=== PATIENT | female | born 1955 | race Caucasian/White ===

== ENCOUNTER 2021-05-11 10:09 | Outpatient (CLI) | payer BC, SELFPAY ==
--- NOTE | 2021-05-11 12:50 | WPDPFTINT ---
PFT Procedure Performed PFT Procedure Performed Spirometry with Pre/Post Bronchodilator Plethysmography (Lung Vol) Diffusing Cap (DLCO) Flow Vol Loop PFT Interpretation This is a pulmonary function test with pre and post-bronchodilator spirometry, plethysmography and diffusing capacity. The test was performed and results interpreted in accordance with the 2019 and 2005 ATS/ERS Task Force guidelines respectively using the Global Lung Function Initiative-2012 reference equations. Patient demonstrated good effort and cooperation. Reproducibility criteria were met. The quality of the pre bronchodilator spirometry maneuver was Grade A and post bronchodilator spirometry maneuver was Grade A. Findings: Spirometry: There is decreased maximal expiratory airflow at all lung volumes with concave expiratory flow tracing. Contour the inspiratory flow tracing is normal. The pre bronchodilator FVC is 2.12 L, 67% predicted. The pre bronchodilator FEV1 is 0.99 L, 40% predicted. The FEV1: FVC ratio is 47%. The post bronchodilator FVC is 2.53 L, representing a 19% increase. The post bronchodilator FEV1 is 1.17, representing a 18% increase. Plethysmography: The total lung capacity is 5.48 L, 105% predicted. Functional residual capacity is 3.87, 148% predicted. The residual volume is 3.01 L, 161% predicted. Diffusing capacity: The absolute diffusion capacity is 10.3, 44% predicted. The diffusing capacity corrected for alveolar volume is 3.03, 66% predicted. Impression: There is a severe obstructive abnormality with significant improvement after inhaling a single dose of albuterol. The increase in residual volume is consistent with air trapping from an obstructive abnormality. The absolute diffusing capacity is moderately decreased and remains mildly decreased when normalized when corrected for alveolar volume. There are no prior studies for comparison
== END 2021-05-11 10:10 | disposition home or self-care (01) ==
PROVIDERS: PCP Family Medicine; Visit Provider Nurse Practitioner Family
DX: R05 Cough (principal); R06.02 Shortness of breath; R94.2 Abnormal results of pulmonary function studies
CPT/HCPCS: 94060; 94726; 94729

== ENCOUNTER 2022-08-31 15:27 | Outpatient (CLI) | payer MEDICARE, BC, SELFPAY ==
--- NOTE | ~2022-08-31 | XR_ITS ---
EXAMINATION: XR lumbar spine 2-3V DATE: 08/31/2022 15:50 INDICATION: Bilateral lower limb pain, chronic low back pain TECHNIQUE: Anteroposterior and lateral views of the lumbar spine, and cone-down lateral view of the l umbosacral junction were obtained. COMPARISON: 11/16/2018 FINDINGS: There are stable changes of posterior fusion and interbody device placement at L5-S1. There are 10 mm of chronic anterolisthesis of L5 on S1. Vertebral body alignment is otherwise normal. Ther e is no fracture. The vertebral body heights are maintained. There is mild facet joint osteoarthritis in the mid lumbar spine. IMPRESSION: 1. Stable surgical changes at L5-S1 with chronic grade 2 anterolisthesis of L5 on S1. No acute findin gs. Reviewed, dictated and finalized at location B. R SLITTER IMPRESSION: 1. Stable surgical changes at L5-S1 with chronic grade 2 anterolisthesis of L5 on S1. No acute findings.
== END 2022-08-31 15:28 | disposition home or self-care (01) ==
PROVIDERS: PCP Family Medicine; Visit Provider Physician Assistant Medical
DX: M54.40 Lumbago with sciatica, unspecified side (principal)
CPT/HCPCS: 72100

== ENCOUNTER 2022-11-01 14:31 | Inpatient (IN) | payer MEDICARE, OTHER, SELFPAY ==
[2022-11-01] VITALS (7 sets, daily range): BP systolic 123–169; BP diastolic 80–103; PULSE 88–119; RESP 10–32; TEMP 36.8–37.1; O2SAT 96
--- NOTE | ~2022-11-01 | XR_ITS ---
EXAMINATION: XR chest 1V portable Exam Date/Time: 11/01/2022 15:30 CLARITY DEVELOPER HISTORY: SOB Comparison: 01/21/2004, x-ray lumbar spine 08/31/2022. RESULT: Lines, tubes, and devices: None. Lungs and pleura: Slightly increased reticular and reticulonodular opacities opacities. Curvilinear, rounded opacity projecting over the left inferior lung, stable since the prior lumbar spine radiogra phs, possible summation artifact versus diaphragmatic hernia. Cardiomediastinal silhouette: Stable. Other: No acute osseous or upper abdominal finding. IMPRESSION: Mild interstitial edema versus respiratory bronchiolitis. Possible small diaphragmatic hernia on the left, attention on the forthcoming CTPA for confirmation. Reviewed, dictated and finalized at location K. ITY DEVELOPER IMPRESSION: Mild interstitial edema versus respiratory bronchiolitis. Possible small diaphr agmatic hernia on the left, attention on the forthcoming CTPA for confirmation.
--- NOTE | ~2022-11-01 | CT_ITS ---
EXAMINATION: CTA chest PE protocol DATE: 11/01/2022 16:59 INDICATION: SOB, hx of PE TECHNIQUE: Computed tomography angiography (CTA) of the chest was performed with 100 mL Omnipaque-350 intravenous contrast timed to evaluate the pulmonary arteries. Coronal maximum intensity projection 3D-reconstructions were created by the technologist. The dose-length product (DLP) was 233.27 mGy-cm. Automated exposure control and iterative reconstruction technique were employed. COMPARISON: X-ray chest, same date. FINDINGS: Lung parenchyma and airways: Mild scattered central and peripheral reticular and tree-in-bud opacitie s. Pleura: Small fat-containing posterior left diaphragmatic hernia. Thoracic inlet, axillae and chest wall: Unremarkable. Thoracic aorta: Normal. Mediastinum: Normal. Heart and pericardium: Normal. Coronary artery calcifications: Mild. Upper abdomen: No significant finding. Bones: No acute osseous finding. Pulmonary arteries: Study quality: Adequate. No pulmonary emboli detected. IMPRESSION: No CT evidence of acute pulmonary embolus. Pulmonary opacities likely represent atypical infection. S mall fat-containing left-sided Bochdalek hernia. Reviewed, dictated and finalized at location K. N RESOURCES OFFICER IMPRESSION: No CT evidence of acute pulmonary embolus. Pulmonary opacities likely represent atypical infection. Small fat-containing left-sided Bochdalek hernia.
--- NOTE | ~2022-11-01 | XR_ITS ---
EXAMINATION: XR chest 1V INDICATION: Pneumonia and shortness of breath TECHNIQUE: AP view of the chest is obtained. COMPARISON: 11/01/2022 FINDINGS: There are persistent but improved airspace opacities of the bases. No pleural effusion or p neumothorax. The cardiomediastinal silhouette is normal. IMPRESSION: 1. Improving airspace opacities of the lung bases, consistent with resolving pneumonia. Reviewed, dictated and finalized at location L. CAL BILLING SUPERVISOR IMPRESSION: 1. Improving airspace opacities of the lung bases, consistent with resolving pn eumonia.
--- NOTE | ~2022-11-01 | CT_ITS ---
EXAMINATION: CT brain & sinus wo con DATE: 11/03/2022 13:14 INDICATION: Headache. TECHNIQUE: Computed tomography (CT) of the head and paranasal sinuses was performed without intraveno us contrast. The mA was adjusted according to patient size. Iterative reconstruction technique was em ployed. The dose-length product was 1059.30 mGy-cm. COMPARISON: Head CT 08/10/2006 FINDINGS: CT HEAD: There is no intracranial hemorrhage, acute infarction, or abnormal intracranial mass lesion. The ventricles are normal in size. There are likely changes of ocular lens replacement surgeries. Th e mastoid air cells are normal. CT SINUSES: There is mild mucosal thickening in the frontal, bilateral ethmoid, and sphenoid sinuses. The mastoid sinuses are clear. The ostiomeatal units are widely patent. There is leftward deviation of the nasal septum. IMPRESSION: 1. Normal brain. 2. Mild mucosal thickening in the paranasal sinuses. 3. Leftward deviation of the nasal septum. Reviewed, dictated and finalized at location A. NING TECHNOLOGIST
--- NOTE | 2022-11-01 14:38 | ECG_ITS ---
Measurements Intervals [place] Rate: 106 P: 79 UT: 150 QRS: 61 QRSD: 80 T: 62 QT: 330 QTc: 439 Interpretive Statements SINUS TACHYCARDIA CONSIDER ANTERIOR INFARCT, AGE INDETERMINATE BORDERLINE ST-T WAVE ABNORMALITY- HIGH LATERAL LEADS BASELINE ARTIFACT- I, II, AVR, AVL, AVF, V1-V4 ABNORMAL ECG NO PREVIOUS ECG AVAILABLE FOR COMPARISON Electronically Signed On 11-01-2022 14:53:03 CONSTRUCTION FRAMER by Seferino Humphries D.O.
--- NOTE | 2022-11-01 14:43 | ED.SOB ---
HPI - SOB/Dyspnea General Chief Complaint: Shortness of Breath/Dyspnea Stated Complaint: shortness of breath History of Present Illness HPI Narrative: Patient is a 67-year-old female with a history of COPD presenting with shortness of breath. Patient states that she was in her normal state of health until yesterday when she developed a productive cough. States around that time she also developed a headache. States that this morning she continued to feel very short of breath. She used her inhaler with mild improvement. States that she has also been nauseated with multiple episodes of emesis. She denies fever, chest pain, lightheadedness, abdominal pain, dysuria, leg swelling. She does report some diarrhea. Related Data Home Medications Medication Instructions Recorded Confirmed tizanidine 2 mg tablet 2 mg PO HS 11/01/22 11/01/22 Allergies Allergy/AdvReac Type Severity Reaction Status Date / Time Penicillins Allergy Unknown Unknown Verified 08/29/22 10:44 Sulfa (Sulfonamide Allergy Unknown Unknown Verified 08/29/22 10:44 Antibiotics) Review of Systems Review of Systems: All systems reviewed & are unremarkable except as noted in HPI and below PMFSH Past Medical History Medical History (Updated 11/03/22 @ 15:33 by Angeline Abad MD) Anxiety Arthritis Chronic obstructive pulmonary disease Insomnia Pulmonary embolism (2019) Tobacco abuse Surgical History Surgical History (Updated 11/02/22 @ 00:38 by Amanda Hoyt PA-C) History of bilateral cataract extraction Family History Family History Other Diabetes mellitus Social History Social History (Updated 11/02/22 @ 00:38 by Amanda Hoyt PA-C) Social History: Surrogate medical decision maker: Maykel Jade, spouse. Code status: Full code. Years smoked: 35 Smoking status: Former smoker Smoking end date: 10/16/22 Alcohol intake: never Substance use: never Lack of Transportation: No Lack of Food: Never True Current Housing: I Have Housing Concerned About Future Housing: No Difficulty Paying Gas/Electric Bills: No Difficulty Paying for Meds: No Currently Unemployed: No Education: Associate Degree Difficulty w/ Childcare or Family Care: No Spiritual care concerns: No Exam Narrative: GENERAL: Nontoxic, in mild respiratory distress HEAD: Normocephalic, atraumatic. EYES: PERRLA and EOMI. ENT: Nares clear, no rhinorrhea or epistaxis. Mucous membranes moist. NECK: Supple. CHEST: Very tight bilaterally with diffuse wheezing HEART: Tachycardic, regular rhythm. No murmur heard. Normal peripheral pulses. ABDOMEN: Soft, nontender, nondistended, normal active bowel sounds. EXTREMITIES: Normal range of motion. No edema. SKIN: Warm, dry, no rash. NEURO: No focal deficits. Alert and oriented x3. PSYCH: Normal mood and affect. Course Vital Signs Vital signs: Vital Signs Temperature 98.2 F 11/01/22 14:29 Pulse Rate 108 H 11/01/22 14:29 Respiratory Rate 32 H 11/01/22 14:29 Blood Pressure 169/103 H 11/01/22 14:29 Pulse Oximetry 96 11/01/22 14:29 Oxygen Delivery Room Air 11/01/22 14:29 Temperature 97.1 F L 11/03/22 13:55 Pulse Rate 90 11/03/22 14:47 Respiratory Rate 18 11/03/22 14:47 Blood Pressure 145/88 H 11/03/22 13:55 Pulse Oximetry 96 11/03/22 13:55 Oxygen Delivery Nasal Cannula 11/03/22 09:08 Oxygen Flow Rate 2 11/03/22 09:08 MDM - SOB/Dyspnea MDM Narrative Medical decision making narrative: Patient is a 67-year-old female presenting with shortness of breath. On arrival, patient is saturating 91 to 92% on room air. She is tachycardic and normotensive. She is extremely wheezy and tight on exam. Plan for hour-long breathing treatment, steroids. EKG per my interpretation shows sinus tachycardia, normal axis, normal intervals, no ST elevations or depressions. CXR with evidence of ed
[2022-11-01] MEDS: IPRATROPIUM BR 0.02% INH SOLN 0.5 MG/2.5 ML VIAL INHALATION ×2 (14:51→21:14)
[2022-11-01] MEDS: ALBUTEROL SULFATE NEB 2.5 MG/3 ML INH 10 MG INHALATION (14:51)
[2022-11-01 14:55] LABS: Basophils Absolute Auto 0.1 K/mm3 (0.0-0.1); Basophils Percent Auto 0.5 % (0.2-1.2); Eosinophils Absolute Auto 0.1 K/mm3 (0-0.3); Eosinophils Percent Auto 0.5 % (0-4.4); Hematocrit 41.9 % (37.0-47.0); Hemoglobin 14.2 g/dL (12.0-15.0); Immature Granulocyte Absolute 0.05 K/mm3 (0.00-0.031); Immature Granulocyte Percent A 0.5 % (0-0.5); Lymphocytes Absolute Auto 0.97 K/mm3 (0.9-3.2); Lymphocytes Percent Auto 9.9 % (18.3-44.2); Mean Corpuscular HGB Conc 33.9 g/dl (32-36); Mean Corpuscular Hemoglobin 30.3 pg (26-34); Mean Corpuscular Volume 89.3 fl (80-100); Mean Platelet Volume 9.2 fl (7.4-10.4); Monocytes Absolute Auto 0.5 K/mm3 (0.1-0.6); Monocytes Percent Auto 5.1 % (2.6-8.5); Neutrophils Absolute Auto 8.2 K/mm3 (1.3-6.7); Neutrophils Percent Auto 83.5 % (45.5-73.1); Platelet Count Result 321 k/mm3 (150-375); Red Blood Count 4.69 M/mm3 (4.2-5.4); White Blood Count 9.8 K/mm3 (4.5-10.0)
[2022-11-01 15:06] LABS: Alanine Aminotransferase 17 U/L (6-35); Albumin Level 4.4 g/dL (3.5-5.1); Alkaline Phosphatase 129 U/L (38-126); Anion Gap 7 mmol/L (8-16); Aspartate Amino Transferase 26 U/L (14-36); Bilirubin,Total 0.3 mg/dL (0.2-1.3); Blood Urea Nitrogen 13 mg/dL (7-17); Calcium 8.6 mg/dL (8.4-10.2); Carbon Dioxide 23 mmol/L (22-30); Chloride 107 mmol/L (98-107); Estimated CRCL calculation 79 ml/min; Estimated Glomerular Filt Rate > 60; Glucose 97 mg/dL (65-110); Lipase 52 U/L (23-300); Potassium 4.1 mmol/L (3.4-5.0); Sodium 137 mmol/L (137-145)
[2022-11-01] MEDS: ONDANSETRON INJ 4 MG/2 ML VIAL IV PUSH (15:08)
[2022-11-01] MEDS: SODIUM CHLORIDE 0.9% IV 1,000 ML 999 ML IV CONT (15:08)
[2022-11-01] MEDS: methylPREDNISolone SOD SUCC 125 MG VIAL IV PUSH (15:08)
[2022-11-01] MEDS: KETOROLAC 15 MG/ML VIAL (*BKC) IV PUSH (15:08)
[2022-11-01 15:31] LABS: Influenza A QL RT-PCR Negative (Negative); Influenza B QL RT-PCR Negative (Negative); RSV RNA, RT-PCR Negative (Negative); SARS-CoV-2 RNA PCR Negative
[2022-11-01] MEDS: ACETAMINOPHEN 500 MG TABLET 1000 MG PO (17:10)
[2022-11-01 17:17] LABS: Add Urine Microscopic? YES; Appearance Urine Clear (Clear); Bilirubin Urine Negative (Negative); Blood Urine Negative (Negative); Color Urine Yellow (Yellow); Glucose Urine UA Negative (Negative); Ketones Urine 4+ mg/dL (Negative); Leukocyte Esterase Ur Negative LEU/UL (Negative); Nitrate Urine Negative (Negative); Protein Urine Trace mg/dL (Negative); Specific Grav Ur >= 1.030 (1.001-1.035); Urobilinogen Urine 0.2 mg/dL (<2.0); pH Urine 5.5 (5.0-9.0)
[2022-11-01 17:21] LABS: Mucus Urine Rare /lpf; RBC Urine 0-2 /hpf (0-2); Squamous Epithelial Cell Urine Rare /hpf (Few); WBC Urine 0-3 /hpf
[2022-11-01] MEDS: ALBUTEROL SULFATE NEB 2.5 MG/3 ML INH 5 MG INHALATION (21:14)
--- NOTE | 2022-11-01 23:55 | PM.IMHP ---
H&P: HPI History of Present Illness Date/Time: 11/01/22 23:55 Chief Complaint: Shortness of breath. Narrative: This is a 67-year-old female with COPD and history of pulmonary embolism who presented to the emergency department from home for evaluation of shortness of breath. She has not been feeling well for several days with symptoms to include frontal headache, sinus congestion, chills, decreased appetite, nausea with several episodes of emesis but now dry heaving, and loose stools. She has been taking Tylenol and Mucinex at home without much help and today she felt increasingly stuffy and short of breath and came in for evaluation. She he denies sick contacts, documented fever, sore throat, chest pain, pleuritic pain, palpitations, calf pain, edema, and dysuria. No known sick contacts. She was afebrile on arrival with stable vital signs. Labs were pretty unremarkable. Urine was concentrated with 4+ ketones. She was negative for influenza, RSV, and COVID. Chest x-ray showed mild interstitial edema versus respiratory bronchiolitisly on but did note for pulmonary opacities likely representing atypical infection. She was given a nebulizer and Solu-Medrol in the ED and she is being admitted in this setting for further treatment of COPD exacerbation. Review of Systems Review of Systems: 12 systems were reviewed and are negative except for as per HPI. FORMERLY [facility], [facility] Past Medical History Medical History (Updated 11/02/22 @ 01:08 by Amanda Hoyt PA-C) Anxiety Arthritis Chronic obstructive pulmonary disease Insomnia Pulmonary embolism (2019) Tobacco abuse Surgical History Surgical History (Updated 11/02/22 @ 00:38 by Amanda Hoyt PA-C) History of bilateral cataract extraction Family History Family History Other Diabetes mellitus Social History Social History (Updated 11/02/22 @ 00:38 by Amanda Hoyt PA-C) Social History: Surrogate medical decision maker: Maykel Jade, spouse. Code status: Full code. Years smoked: 35 Smoking status: Former smoker Smoking end date: 10/16/22 Alcohol intake: never Substance use: never Lack of Transportation: No Lack of Food: Never True Current Housing: I Have Housing Concerned About Future Housing: No Difficulty Paying Gas/Electric Bills: No Difficulty Paying for Meds: No Currently Unemployed: No Education: Associate Degree Difficulty w/ Childcare or Family Care: No Spiritual care concerns: No Meds Home Medications and Allergies Home Medications Medication Instructions Recorded Confirmed Type zaleplon 5 mg capsule 5 mg PO DAILY #30 caps 08/15/22 11/01/22 Rx alendronate 70 mg tablet 70 mg PO WEEKLY #90 tabs 08/29/22 11/01/22 Rx budesonide-formoterol HFA 160 See Rx Instructions .Route 08/29/22 11/01/22 Rx mcg-4.5 mcg/actuation aerosol .COMPLEX ##10.2 inhaler meloxicam 15 mg tablet 15 mg PO DAILY #30 tabs 08/29/22 11/01/22 Rx valacyclovir 1 gram tablet 1,000 mg PO Q12H #4 tabs 08/29/22 11/01/22 Rx (Valtrex) tizanidine 2 mg tablet 2 mg PO HS 11/01/22 11/01/22 History Allergies Allergy/AdvReac Type Severity Reaction Status Date / Time Penicillins Allergy Unknown Unknown Verified 08/29/22 10:44 Sulfa (Sulfonamide Allergy Unknown Unknown Verified 08/29/22 10:44 Antibiotics) Vital Signs Vital Signs - 24 hr 11/01/22 14:29 11/01/22 14:52 11/01/22 15:43 Temperature 98.2 F Pulse Rate 108 H 105 H 119 H Respiratory Rate 32 H 10 L 22 H Blood Pressure 169/103 H Pulse Oximetry 96 Oxygen Delivery Room Air Oxygen Flow Rate 11/01/22 16:09 11/01/22 19:03 11/01/22 22:44 Temperature Pulse Rate 88 Respiratory Rate 16 Blood Pressure Pulse Oximetry 96 Oxygen Delivery Room Air Nasal Cannula Oxygen Flow Rate 3 11/01/22 22:54 Temperature 98.7 F Pulse Rate 98 Respiratory Rate 18 Blood Pressure 123/80 Pulse Oximetry 96 Oxyg
[2022-11-02] VITALS (18 sets, daily range): BP systolic 133–144; BP diastolic 71–88; PULSE 77–108; RESP 18–91; TEMP 35.9–36.8; O2SAT 18–96
[2022-11-02] MEDS: guaiFENesin 600 MG/DEXTROMETHORPHAN 30 MG SR TAB 12 HR 1 TAB PO ×3 (01:28→21:28)
[2022-11-02] MEDS: ZOLPIDEM TARTRATE (*CRX) 5 MG TABLET PO ×2 (01:28→21:28)
[2022-11-02] MEDS: TIZANIDINE HCL 2 MG TABLET PO ×2 (01:28→21:28)
[2022-11-02] MEDS: methylPREDNISolone SOD SUCC 40 MG VIAL IV PUSH ×3 (01:29→16:56)
[2022-11-02] MEDS: KETOROLAC 15 MG/ML VIAL (*BKC) IV PUSH (01:29)
[2022-11-02] MEDS: DEXTROSE 5%/0.9% SOD CHL 1,000 ML 100 ML IV CONT (01:30)
[2022-11-02] MEDS: IPRATROPIUM BR 0.02% INH SOLN 0.5 MG/2.5 ML VIAL INHALATION ×4 (03:15→21:43)
[2022-11-02] MEDS: ALBUTEROL SULFATE NEB 2.5 MG/3 ML INH INHALATION ×4 (03:15→21:42)
[2022-11-02 05:38] LABS: Hematocrit 38.3 % (37.0-47.0); Hemoglobin 12.8 g/dL (12.0-15.0); Mean Corpuscular HGB Conc 33.4 g/dl (32-36); Mean Corpuscular Hemoglobin 30.2 pg (26-34); Mean Corpuscular Volume 90.3 fl (80-100); Platelet Count Result 305 k/mm3 (150-375); Red Blood Count 4.24 M/mm3 (4.2-5.4); Red Cell Distribution Width 12.7 % (11.5-14.5); White Blood Count 9.3 K/mm3 (4.5-10.0)
[2022-11-02 05:53] LABS: Chloride 105 mmol/L (98-107)
[2022-11-02 05:58] LABS: Anion Gap 5 mmol/L (8-16); Blood Urea Nitrogen 11 mg/dL (7-17); Calcium 7.9 mg/dL (8.4-10.2); Carbon Dioxide 24 mmol/L (22-30); Estimated CRCL calculation 79 ml/min; Estimated Glomerular Filt Rate > 60; Glucose 162 mg/dL (65-110); Magnesium 1.9 mg/dL (1.6-2.3); Potassium 3.7 mmol/L (3.4-5.0); Sodium 134 mmol/L (137-145)
[2022-11-02 06:07] LABS: Procalcitonin 0.1 ng/mL
[2022-11-02] MEDS: ACETAMINOPHEN 325 MG TABLET 650 MG PO ×2 (08:21→22:00)
[2022-11-02] MEDS: FLUTICASONE PROPIONATE 0.05% NA SPR 16 GM BTL (*BKC) 1 SPRAY NASAL ×2 (08:22→21:27)
[2022-11-02] MEDS: valACYclovir HCL 500 MG TABLET 1000 MG PO ×2 (08:22→21:28)
[2022-11-02] MEDS: MELOXICAM 7.5 MG TABLET 15 MG PO (08:22)
[2022-11-02] MEDS: ENOXAPARIN 40 MG/0.4 ML SYRINGE SUB-Q (08:22)
[2022-11-02] MEDS: FLUTICASONE/SALMETEROL 115-21 MCG INHALER 1 PUFF 2 PUFF INHALATION ×2 (08:44→21:43)
[2022-11-02] MEDS: HYDROcodone/acetaminophen (*CRX) 5-325 MG TABLET 1 TAB PO (11:00)
--- NOTE | 2022-11-02 11:15 | PM.IMPN ---
Progress Note: A&P Assessment and Plan (1) COPD exacerbation: Code(s): J44.1 - Chronic obstructive pulmonary disease with (acute) exacerbation Status: Acute Assessment and Plan: Likely precipitated by viral infection. Continue scheduled bronchodilators and Solu-Medrol. (2) Dehydration: Code(s): E86.0 - Dehydration Status: Acute Assessment and Plan: Secondary to poor oral intake and vomiting. Hydrate overnight. (3) Pneumonia: Code(s): J18.9 - Pneumonia, unspecified organism Status: Acute Assessment and Plan: Likely viral pneumonia however possible atypical infection. She has been started on azithromycin. Attempt sputum for culture. Plan Patient quit smoking on 2021. Seems to be doing well in that regard. Subjective Date/time seen: 11/02/22 11:15 Breathing better. No new complaints Exam Narrative: General: Mildly ill-appearing female sitting up in bed. Weight: 65 kilograms. BMI: 27.1. HEENT: Normocephalic, atraumatic. PERRL, EOMI. Sclera anicteric. Dry mucous membranes. No tenderness to palpation over the sinuses. Neck: Supple. No JVD or lymphadenopathy. Respiratory: Mildly tachypneic with speaking in full sentences. Lung sounds are diminished throughout with coarse lung sounds at the bases and expiratory wheezing. Cardiovascular: Regular rate and rhythm with S1-S2. Gastrointestinal: Abdomen is soft, nontender, and nondistended with positive bowel sounds. Skin: Warm and dry. No rash or lesions on limited exam. Extremities: No cyanosis, clubbing, or edema. Radial and pedal pulses intact. Negative Jacki sign bilaterally. Neurological: Alert. Cranial nerves 2-12 are grossly intact. No gross focal deficits to casual conversation. Psychiatric: Pleasant and cooperative with normal mood and affect. Judgment and insight intact. Objective Data Vital Signs Vital Signs: Vital Signs - 24 hr 11/01/22 14:29 11/01/22 14:52 11/01/22 15:43 Temperature 98.2 F Pulse Rate 108 H 105 H 119 H Respiratory Rate 32 H 10 L 22 H Blood Pressure 169/103 H Pulse Oximetry 96 Oxygen Delivery Room Air Oxygen Flow Rate 11/01/22 16:09 11/01/22 19:03 11/01/22 22:44 Temperature Pulse Rate 88 Respiratory Rate 16 Blood Pressure Pulse Oximetry 96 Oxygen Delivery Room Air Nasal Cannula Oxygen Flow Rate 3 01/10/23 22:54 11/01/22 20:00 11/02/22 01:15 Temperature 98.7 F Pulse Rate 98 Respiratory Rate 18 Blood Pressure 123/80 139/87 Pulse Oximetry 96 95 Oxygen Delivery Nasal Cannula Oxygen Flow Rate 3 11/02/22 03:15 11/02/22 03:43 11/01/22 20:00 Temperature Pulse Rate 77 96 95 Respiratory Rate 18 77 H Blood Pressure Pulse Oximetry 18 L Oxygen Delivery Nasal Cannula Oxygen Flow Rate 2 11/02/22 00:00 11/02/22 04:00 11/02/22 06:00 Temperature 97.6 F Pulse Rate 94 98 94 Respiratory Rate 18 Blood Pressure 134/88 Pulse Oximetry 95 Oxygen Delivery Oxygen Flow Rate 11/02/22 08:45 11/02/22 08:45 11/02/22 08:55 Temperature Pulse Rate 94 91 98 Respiratory Rate 91 H 24 H 24 H Blood Pressure Pulse Oximetry 24 L Oxygen Delivery Nasal Cannula Oxygen Flow Rate 2 11/02/22 08:00 11/02/22 08:00 Temperature Pulse Rate 108 H Respiratory Rate Blood Pressure Pulse Oximetry 96 Oxygen Delivery Nasal Cannula Oxygen Flow Rate 2 Intake/Output Intake/Output: Intake & Output 10/30/22 10/31/22 11/01/22 11/02/22 23:59 23:59 23:59 23:59 Intake Total 1120 850 Output Total 700 Balance 1120 150 Meds/Results Medications: Active Medications Generic Name Dose Route Start Last Admin Trade Name Freq PRN Reason Stop Dose Admin Acetaminophen 650 mg 11/02/22 01:09 11/02/22 08:21 Acetaminophen 325 Mg Tablet PO 650 mg Q6H PRN Administration Mild Pain (1-3) or Fever Hydrocodone Bitart/Acetaminophen 1 tab 11/02/22 10:39
[2022-11-02] MEDS: ONDANSETRON INJ 4 MG/2 ML VIAL IV PUSH (16:56)
[2022-11-03] VITALS (15 sets, daily range): BP systolic 129–147; BP diastolic 86–94; PULSE 90–104; RESP 12–20; TEMP 36.2–37; O2SAT 93–96
[2022-11-03] MEDS: methylPREDNISolone SOD SUCC 40 MG VIAL IV PUSH ×3 (02:04→17:08)
[2022-11-03] MEDS: ALBUTEROL SULFATE NEB 2.5 MG/3 ML INH INHALATION ×4 (03:28→20:30)
[2022-11-03] MEDS: IPRATROPIUM BR 0.02% INH SOLN 0.5 MG/2.5 ML VIAL INHALATION ×4 (03:29→20:31)
[2022-11-03] MEDS: valACYclovir HCL 500 MG TABLET 1000 MG PO ×2 (08:04→21:54)
[2022-11-03] MEDS: ENOXAPARIN 40 MG/0.4 ML SYRINGE SUB-Q (08:04)
[2022-11-03] MEDS: MELOXICAM 7.5 MG TABLET 15 MG PO (08:04)
[2022-11-03] MEDS: guaiFENesin 600 MG/DEXTROMETHORPHAN 30 MG SR TAB 12 HR 1 TAB PO ×2 (08:04→21:54)
[2022-11-03] MEDS: FLUTICASONE PROPIONATE 0.05% NA SPR 16 GM BTL (*BKC) 1 SPRAY NASAL ×2 (08:05→21:54)
[2022-11-03] MEDS: FLUTICASONE/SALMETEROL 115-21 MCG INHALER 1 PUFF 2 PUFF INHALATION ×2 (09:02→20:31)
--- NOTE | 2022-11-03 12:47 | PM.IMPN ---
Progress Note: A&P Assessment and Plan (1) COPD exacerbation: Code(s): J44.1 - Chronic obstructive pulmonary disease with (acute) exacerbation Status: Acute Assessment and Plan: Likely precipitated by viral infection. Continue scheduled bronchodilators and Solu-Medrol. Continue antibiotics (2) Dehydration: Code(s): E86.0 - Dehydration Status: Acute Assessment and Plan: Resolved (3) Pneumonia: Code(s): J18.9 - Pneumonia, unspecified organism Status: Acute Assessment and Plan: Likely viral pneumonia however possible atypical infection. She has been started on azithromycin. Subjective Date/time seen: 11/03/22 12:47 No new complaints. Reports she is feeling better. Exam Narrative: General: Mildly ill-appearing female sitting up in bed. Weight: 65 kilograms. BMI: 27.1. HEENT: Normocephalic, atraumatic. PERRL, EOMI. Sclera anicteric. Dry mucous membranes. No tenderness to palpation over the sinuses. Neck: Supple. No JVD or lymphadenopathy. Respiratory: Mildly tachypneic with speaking in full sentences. Lung sounds are diminished throughout with coarse lung sounds at the bases and expiratory wheezing. Cardiovascular: Regular rate and rhythm with S1-S2. Gastrointestinal: Abdomen is soft, nontender, and nondistended with positive bowel sounds. Skin: Warm and dry. No rash or lesions on limited exam. Extremities: No cyanosis, clubbing, or edema. Radial and pedal pulses intact. Negative Jacki sign bilaterally. Neurological: Alert. Cranial nerves 2-12 are grossly intact. No gross focal deficits to casual conversation. Psychiatric: Pleasant and cooperative with normal mood and affect. Judgment and insight intact. Objective Data Vital Signs Vital Signs: Vital Signs - 24 hr 11/02/22 14:00 11/02/22 14:32 11/02/22 14:44 Temperature 98.2 F Pulse Rate 91 86 93 Respiratory Rate 18 24 H 24 H Blood Pressure 133/83 Pulse Oximetry 95 Oxygen Delivery Oxygen Flow Rate 11/02/22 16:00 11/02/22 21:45 11/02/22 21:47 Temperature Pulse Rate 102 H 91 Respiratory Rate 20 Blood Pressure Pulse Oximetry 95 Oxygen Delivery Nasal Cannula Oxygen Flow Rate 2 11/02/22 21:42 11/02/22 20:00 11/03/22 03:30 Temperature 96.7 F L Pulse Rate 93 93 Respiratory Rate 18 18 Blood Pressure 144/71 H Pulse Oximetry 95 96 Oxygen Delivery Nasal Cannula Oxygen Flow Rate 2 11/02/22 20:00 11/03/22 00:00 11/03/22 04:00 Temperature Pulse Rate 96 104 H 93 Respiratory Rate Blood Pressure Pulse Oximetry Oxygen Delivery Oxygen Flow Rate 11/03/22 06:00 11/03/22 09:08 11/03/22 09:09 Temperature 98.6 F Pulse Rate 99 94 92 Respiratory Rate 18 Blood Pressure 129/86 Pulse Oximetry 96 93 Oxygen Delivery Nasal Cannula Oxygen Flow Rate 2 11/03/22 08:00 11/03/22 08:00 11/03/22 12:00 Temperature Pulse Rate 90 103 H Respiratory Rate Blood Pressure Pulse Oximetry 93 Oxygen Delivery Nasal Cannula Oxygen Flow Rate 2 Intake/Output Intake/Output: Intake & Output 10/31/22 11/01/22 11/02/22 11/03/22 23:59 23:59 23:59 23:59 Intake Total 6845 007 1100 Output Total 700 600 Balance 1120 270 850 Meds/Results Medications: Active Medications Generic Name Dose Route Start Last Admin Trade Name Freq PRN Reason Stop Dose Admin Acetaminophen 650 mg 11/02/22 01:09 11/02/22 22:00 Acetaminophen 325 Mg Tablet PO 650 mg Q6H PRN Administration Mild Pain (1-3) or Fever Hydrocodone Bitart/Acetaminophen 1 tab 11/02/22 10:39 11/02/22 11:00 Hydrocodone/Acetaminophen (*Crx) 5-325 Mg Tablet PO 1 tab Q8H PRN Administration Pain Rated 4-6 Albuterol 2.5 mg 11/02/22 02:00 11/03/22 09:02 Albuterol Sulfate Neb 2.5 Mg/3 Ml Inh INHALATION 2.5 mg Q6HRT ELGIN Administration Enoxaparin Sodium 40 mg 11/02/22 09:00 11/03/22 08:04 Enoxaparin 40 Mg/0.
[2022-11-03] MEDS: ACETAMINOPHEN 325 MG TABLET 650 MG PO (18:36)
[2022-11-03] MEDS: TIZANIDINE HCL 2 MG TABLET PO (21:54)
[2022-11-03] MEDS: ZOLPIDEM TARTRATE (*CRX) 5 MG TABLET PO (21:54)
[2022-11-04] VITALS (19 sets, daily range): BP systolic 151–168; BP diastolic 91–110; PULSE 88–111; RESP 16–22; TEMP 36.6–37; O2SAT 87–100
[2022-11-04] MEDS: ALBUTEROL SULFATE NEB 2.5 MG/3 ML INH INHALATION ×3 (01:25→13:27)
[2022-11-04] MEDS: IPRATROPIUM BR 0.02% INH SOLN 0.5 MG/2.5 ML VIAL INHALATION ×3 (01:25→13:27)
[2022-11-04] MEDS: methylPREDNISolone SOD SUCC 40 MG VIAL IV PUSH ×2 (02:49→09:16)
[2022-11-04 04:58] LABS: Basophils Percent Auto 0.2 % (0.2-1.2); Hematocrit 38.6 % (37.0-47.0); Hemoglobin 13.1 g/dL (12.0-15.0); Immature Granulocyte Absolute 0.08 K/mm3 (0.00-0.031); Lymphocytes Absolute Auto 0.85 K/mm3 (0.9-3.2); Lymphocytes Percent Auto 10.5 % (18.3-44.2); Mean Corpuscular HGB Conc 33.9 g/dl (32-36); Mean Corpuscular Hemoglobin 30.3 pg (26-34); Mean Corpuscular Volume 89.4 fl (80-100); Mean Platelet Volume 8.9 fl (7.4-10.4); Monocytes Absolute Auto 0.3 K/mm3 (0.1-0.6); Monocytes Percent Auto 3.1 % (2.6-8.5); Neutrophils Absolute Auto 6.9 K/mm3 (1.3-6.7); Neutrophils Percent Auto 85.2 % (45.5-73.1); Platelet Count Result 331 k/mm3 (150-375); Red Blood Count 4.32 M/mm3 (4.2-5.4); Red Cell Distribution Width 12.9 % (11.5-14.5); White Blood Count 8.1 K/mm3 (4.5-10.0)
[2022-11-04 05:09] LABS: Anion Gap 4 mmol/L (8-16); Blood Urea Nitrogen 20 mg/dL (7-17); Calcium 8.4 mg/dL (8.4-10.2); Carbon Dioxide 27 mmol/L (22-30); Chloride 106 mmol/L (98-107); Estimated CRCL calculation 81 ml/min; Estimated Glomerular Filt Rate > 60; Glucose 150 mg/dL (65-110); Potassium 3.6 mmol/L (3.4-5.0); Sodium 137 mmol/L (137-145)
[2022-11-04] MEDS: valACYclovir HCL 500 MG TABLET 1000 MG PO (09:15)
[2022-11-04] MEDS: FLUTICASONE PROPIONATE 0.05% NA SPR 16 GM BTL (*BKC) 1 SPRAY NASAL (09:15)
[2022-11-04] MEDS: guaiFENesin 600 MG/DEXTROMETHORPHAN 30 MG SR TAB 12 HR 1 TAB PO (09:15)
[2022-11-04] MEDS: MELOXICAM 7.5 MG TABLET 15 MG PO (09:16)
[2022-11-04] MEDS: ENOXAPARIN 40 MG/0.4 ML SYRINGE SUB-Q (09:16)
[2022-11-04] MEDS: HYDROcodone/acetaminophen (*CRX) 5-325 MG TABLET 1 TAB PO (09:33)
[2022-11-04] MEDS: FLUTICASONE/SALMETEROL 115-21 MCG INHALER 1 PUFF 2 PUFF INHALATION (10:33)
--- NOTE | 2022-11-04 11:52 | PM.DS ---
DS: Admitting Diagnosis Discharge Date November 04, 2022 Admitting Diagnosis COPD, pneumonia DS: Discharge Diagnosis Discharge Diagnosis (1) COPD exacerbation: Code(s): J44.1 - Chronic obstructive pulmonary disease with (acute) exacerbation Status: Acute Assessment and Plan: Likely precipitated by viral infection. Continue scheduled bronchodilators and Solu-Medrol. Continue antibiotics (2) Dehydration: Code(s): E86.0 - Dehydration Status: Acute Assessment and Plan: Resolved (3) Pneumonia: Code(s): J18.9 - Pneumonia, unspecified organism Status: Acute Assessment and Plan: Likely viral pneumonia however possible atypical infection. She has been started on azithromycin. DS: Summary Hospital Course Hospital Course: 67-year-old female history of COPD came in with exacerbation. She was started on IV antibiotics and steroids and did well. Will have evaluated for home oxygen on discharge. Otherwise she can go home to continue course of azithromycin and prednisone. Time Spent with Patient Time attestation: Total time spent providing and/or coordinating discharge services: Exam Narrative: General: Mildly ill-appearing female sitting up in bed. Weight: 65 kilograms. BMI: 27.1. HEENT: Normocephalic, atraumatic. PERRL, EOMI. Sclera anicteric. Dry mucous membranes. No tenderness to palpation over the sinuses. Neck: Supple. No JVD or lymphadenopathy. Respiratory: Mildly tachypneic with speaking in full sentences. Lung sounds are diminished throughout with coarse lung sounds at the bases and expiratory wheezing. Cardiovascular: Regular rate and rhythm with S1-S2. Gastrointestinal: Abdomen is soft, nontender, and nondistended with positive bowel sounds. Skin: Warm and dry. No rash or lesions on limited exam. Extremities: No cyanosis, clubbing, or edema. Radial and pedal pulses intact. Negative Jacki sign bilaterally. Neurological: Alert. Cranial nerves 2-12 are grossly intact. No gross focal deficits to casual conversation. Psychiatric: Pleasant and cooperative with normal mood and affect. Judgment and insight intact. DS: Data Data Completed and Pending Labs on day of discharge: Labs from last 24 hours 11/04/22 11/04/22 04:50 04:50 WBC 8.1 RBC 4.32 Hgb 13.1 Hct 38.6 MCV 89.4 MCH 30.3 MCHC 33.9 RDW 12.9 Plt Count 331 MPV 8.9 Immature Gran % (Auto) 1.0 H Neut % (Auto) 85.2 H Lymph % (Auto) 10.5 L Page % (Auto) 3.1 Eos % (Auto) 0.0 Baso % (Auto) 0.2 Lymph # (Auto) 0.85 L Page # (Auto) 0.3 Eos # (Auto) 0.0 Baso # (Auto) 0.0 Abs Immat Gran (auto) 0.08 H Absolute Neuts (auto) 6.9 H Absolute Nucleated RBC 0.0 Nucleated RBC % 0.0 Sodium 137 Potassium 3.6 Chloride 106 Carbon Dioxide 27 Anion Gap 4 L BUN 20 H Creatinine 0.50 L Estim Creat Clear Calc 81 Estimated GFR > 60 Glucose 150 H Calcium 8.4 Discharge Plan Discharge Attending physician on discharge: Burt Ledesma Discharging Clinician: Burt Ledesma Patient Disposition: Home, Self-Care Activity: no preference Diet: as tolerated Patient Instructions: Antibiotic Form Stand Alone Forms: General Discharge Information Follow-up/Referrals: Didier Colindres MD [Primary Care Provider] - Discharge Medications: New azithromycin 500 mg tablet 500 mg PO DAILY 5 Days Qty: 5 0RF prednisone 50 mg tablet 50 mg PO DAILY Qty: 4 0RF Continued budesonide-formoterol 160-4.5 mcg/actuation HFA aerosol inhaler See Rx Instructions .ROUTE .COMPLEX Qty: 10.2 3RF Dose Instruction: INHALE 2 PUFFS EVERY 12 HOURS Rx Instructions: INHALE 2 PUFFS EVERY 12 HOURS alendronate 70 mg tablet 70 mg PO WEEKLY Qty: 90 0RF meloxicam 15 mg tablet 15 mg PO DAILY Qty: 30 3RF tizanidine 2 mg tablet 2 mg PO HS Rx Instructions: TAKE 1 TABLET ONCE D
[2022-11-04] MEDS: ONDANSETRON INJ 4 MG/2 ML VIAL IV PUSH (12:23)
--- NOTE | 2022-11-04 13:31 | HOMEO2EVAL ---
Evaluation was performed at [facility] Home Oxygen Evaluation RC: Home Oxygen (O2) Evaluation Start: 11/04/22 11:50 Freq: ONCE Status: Active Protocol: RPE Activity Type Activity Date Activity User E-sign Co-sign Detail Recorded Client Recorded Date Recorded By Document 11/04/22 13:00 [email or web address] [email or web address] 11/04/22 13:31 DJO Document 11/04/22 13:05 [email or web address] [email or web address] 11/04/22 13:31 DJO Document 11/04/22 13:10 [email or web address] [email or web address] 11/04/22 13:31 DJO Document 11/04/22 13:15 [email or web address] [email or web address] 11/04/22 13:31 DJO Document 11/04/22 13:30 [email or web address] [email or web address] 11/04/22 13:31 DJO 11/04/22 11/04/22 11/04/22 13:00 13:05 13:10 Home O2 Evaluation [Oxygen] -Test Phase Resting Exercise Exercise -Oxygen Delivery Room Air Room Air Nasal Cannula -Oxygen Flow Rate (L/min) 1 [Pulse Oximetry] -Pulse Oximetry (90-100 %) 91 87 L 88 L [Pulse Rate] -Pulse Rate (60-100 beats/min) 93 105 H 105 H [Evaluation] -Activity Tolerance [Charges] -Treatment Charges O2 Evaluation - Inpatient 11/04/22 11/04/22 13:15 13:30 Home O2 Evaluation [Oxygen] -Test Phase Exercise Resting -Oxygen Delivery Nasal Cannula Room Air -Oxygen Flow Rate (L/min) 2 [Pulse Oximetry] -Pulse Oximetry (90-100 %) 91 91 [Pulse Rate] -Pulse Rate (60-100 beats/min) 109 H 95 [Evaluation] -Activity Tolerance Good [Charges] -Treatment Charges
--- NOTE | 2022-11-06 11:44 | PC.NURSE ---
Pt spouse called today, asking when he should schedule an appointment with primary care physician. Instructed him to call Dr Jara's office tomorrow and explain that she has been recently hospitalized and needs a follow-up appointment, they will make the appointment according to their schedule. He inquired as to what medications should the patient take. He was instructed to follow the discharge orders, azithromycin until the prescription is complete, prednisone until the prescription is complete and the inhaler until instructed otherwise by Dr Jara. He states the patient is breathing better and ambulating without difficulty or shortness of breath. He states her condition is improved and the medications seem to be working.
== END 2022-11-04 14:45 | disposition home or self-care (01) | DRG 190 ==
LOC: ANHED 14:52 → ANH2MED 17:11
PROVIDERS: Physician Assistant; Admitting Provider Family Medicine; Emergency Provider Emergency Medicine; PCP Family Medicine; Visit Provider Chiropractor
DX: J44.1 Chronic obstructive pulmonary disease with (acute) exacerbation (principal); J12.9 Viral pneumonia, unspecified; J44.0 Chronic obstructive pulmonary disease with (acute) lower respiratory infection; E86.0 Dehydration; Z20.822 Contact with and (suspected) exposure to COVID-19; F41.9 Anxiety disorder, unspecified; M19.90 Unspecified osteoarthritis, unspecified site; Z86.711 Personal history of pulmonary embolism; Z87.891 Personal history of nicotine dependence; Z98.42 Cataract extraction status, left eye; Z98.41 Cataract extraction status, right eye
CPT/HCPCS: 36415; 70450; 70486; 71045; 71275; 80048; 80053; 81001; 83690; 83735; 84145; 85025; 85027; 87637; 93005; 94618; 94640; 96361; 96365; 96372; 96375; 96376; 99285; A9270; G0378; J0456; J1650; J1885; J2405; J2920; J2930; J7030; J7042; Q9967

== ENCOUNTER → 2022-11-17 09:08 | Outpatient (CLI) | payer MEDICARE, OTHER, SELFPAY ==
--- NOTE | ~2022-11-17 | XR_ITS ---
Clinical Indication: Pneumonia PA and lateral views of the chest: Comparison: 11/03/2022 Findings: The lungs are clear, without evidence of focal consolidation or pleural effusion. Cardiome diastinal silhouette is within normal limits. Bones and soft tissues are unremarkable. Impression: Normal chest. Reviewed, dictated and finalized at [facility]. ER OUT Impression: Normal chest.
== END ==
PROVIDERS: PCP Family Medicine; Visit Provider Nurse Practitioner Family
DX: J18.9 Pneumonia, unspecified organism (principal)
CPT/HCPCS: 71046

== ENCOUNTER 2023-01-25 09:49 | Outpatient (CLI) | payer MEDICARE, OTHER, SELFPAY | END 2023-01-25 09:50 | disposition home or self-care (01) | LOC: ANHAUDIO 09:50 | PROVIDERS: PCP Family Medicine; Visit Provider Family Medicine | DX: H90.3 Sensorineural hearing loss, bilateral (principal) | CPT/HCPCS: 92557; 92567 ==

== ENCOUNTER 2024-06-11 16:07 | Outpatient (CLI) | payer MEDICARE, OTHER, SELFPAY ==
--- NOTE | ~2024-06-11 | XR_ITS ---
EXAMINATION: XR chest 2V DATE: 06/11/2024 16:20 INDICATION: Several months of wheezing TECHNIQUE: PA and lateral views of the chest were obtained. COMPARISON: Chest radiograph dated 11/17/[address] dated 11/01/2022 FINDINGS: Mild hyperexpansion of the lungs with increased menstrual clear space and partial flattening of the d iaphragm consistent with mild emphysema better appreciated on prior CT. Unchanged posterior left diap hragmatic hernia which contain fat on the prior CT. No new airspace opacities, pulmonary edema, pleur al effusion or pneumothorax. Heart size is normal. Visualized bones and soft tissues are unremarkable . IMPRESSION: 1. Mild emphysema. No acute cardiopulmonary disease. Reviewed, dictated and finalized at location A.
== END 2024-06-11 16:08 ==
LOC: MICIMG 16:08
PROVIDERS: PCP Family Medicine; Visit Provider Nurse Practitioner Adult Health
DX: R06.2 Wheezing (principal); J43.9 Emphysema, unspecified
CPT/HCPCS: 71046

== ENCOUNTER 2024-08-07 08:51 | Outpatient (CLI) | payer MEDICARE, OTHER, SELFPAY ==
--- NOTE | ~2024-08-07 | CT_ITS ---
EXAMINATION: CT sinus wo con DATE: 08/07/2024 09:03 INDICATION: Chronic maxillary sinusitis TECHNIQUE: Computed tomography (CT) of the paranasal sinuses was performed without intravenous contra st. Coronal reconstructions were obtained. Iterative reconstruction technique was employed. The dose- length product was 390.41 mGy-cm. COMPARISON: 11/03/2022 FINDINGS: The paranasal sinuses are clear with no evident mucosal thickening. Bilateral ostiomeatal units are p atent. Nasal septum is midline with left-sided spike. Changes of bilateral intraocular lens replaceme nt. Orbits are otherwise normal. Mastoid air cells and middle ear cavities are clear. Dystrophic calc ifications at the bilateral lingual tonsils. There are also few calcifications likely synovitis at th e inferior right parotid gland. IMPRESSION: 1. Paranasal sinuses are clear with patent bilateral ostiomeatal units and no evident mucosal thicken ing. Reviewed, dictated and finalized at location A. IMPRESSION: 1. Paranasal sinuses are clear with patent bilateral ostiomeatal units and no e vident mucosal thickening.
== END 2024-08-07 08:52 | disposition home or self-care (01) ==
LOC: GOSHIMG 08:52
PROVIDERS: PCP Family Medicine; Visit Provider Nurse Practitioner Adult Health
DX: J32.0 Chronic maxillary sinusitis (principal)
CPT/HCPCS: 70486